=== PATIENT | female | born 1965 | race Caucasian/White ===

== ENCOUNTER 2017-10-20 13:36 | Emergency (ER) | payer SELFPAY ==
[2017-10-20] MEDS ORDERED: DIAZEPAM 5 MG TABLET PO ONE (14:12)
--- NOTE | 2017-10-20 14:18 | ER Document Report ---
ED General - General Chief Complaint: Anxiety Stated Complaint: MEDICATION REFILL Time Seen by Provider: 10/20/17 14:07 Mode of Arrival: Ambulatory Information source: Patient TRAVEL OUTSIDE OF THE U.S. IN LAST 30 DAYS: No - HPI Patient complains to provider of: med refill Onset: Other - pt. recently moved here from [place] and doesn't have MD appt for several weeks. She is asking for refills of her meds . She denies SI/HI but is bipolar - Related Data Allergies/Adverse Reactions: No Known Allergies Allergy (Unverified 10/20/17 13:42) Past Medical History - General Information source: Patient - Social History Smoking Status: Current Every Day Smoker Chew tobacco use (# tins/day): No Frequency of alcohol use: Occasional Drug Abuse: None Family History: None Patient has suicidal ideation: No Patient has homicidal ideation: No Renal/ Medical History: Denies: Hx Peritoneal Dialysis Review of Systems - Review of Systems Constitutional: No symptoms reported EENT: No symptoms reported Cardiovascular: No symptoms reported Respiratory: No symptoms reported Gastrointestinal: No symptoms reported Neurological/Psychological: See HPI, Anxiety. denies: Suicidal ideation -: Yes All other systems reviewed and negative Physical Exam - General General appearance: Appears well, Anxious In distress: None - HEENT Pharynx: Normal Neck: Normal - Respiratory Respiratory status: No respiratory distress Breath sounds: Normal - Cardiovascular Rhythm: Regular Heart sounds: Normal auscultation - Neurological Neuro grossly intact: Yes Cognition: Normal Orientation: AAOx4 - Psychological Associated symptoms: Normal affect, Normal mood, Anxious Discharge - Discharge Clinical Impression: Medication refill Condition: Stable Disposition: HOME, SELF-CARE Instructions: Anxiety ([facility]) Additional Instructions: rest, take meds as prescribed, return if worse Prescriptions: Lamotrigine [Lamictal 100 mg Tablet] 100 mg PO QHS #30 tablet Clonazepam [Klonopin 2 mg Tablet] 2 mg PO BID #60 tablet Ziprasidone HCl [Geodon 60 Mg Capsule] 60 mg PO BID #60 capsule Zolpidem Tartrate [Ambien Cr] 12.5 mg PO DAILY #20 tab.mphase
== END 2017-10-20 14:21 | disposition home or self-care (01) ==
LOC: ER 13:36
DX: Z76.0 Encounter for issue of repeat prescription (principal); F31.9 Bipolar disorder, unspecified; F17.200 Nicotine dependence, unspecified, uncomplicated; F41.9 Anxiety disorder, unspecified
CPT/HCPCS: 99281

== ENCOUNTER 2017-11-05 19:14 | Emergency (ER) | payer SELFPAY ==
[2017-11-05 20:40] LABS: ABSOLUTE BASOPHILS # (AUTO) 0.1 10^3/uL (0.0-0.2); ABSOLUTE EOSINOPHILS # (AUTO) 0.1 10^3/uL (0.0-0.6); ABSOLUTE LYMPHOCYTES (AUTO) 2.8 10^3/uL (0.5-4.7); ABSOLUTE MONOCYTES (AUTO) 0.8 10^3/uL (0.1-1.4); ABSOLUTE NEUT (AUTO) 3.6 10^3/uL (1.7-8.2); BASOPHILS % (AUTO) 1.2 % (0-2); EOSINOPHILS % (AUTO) 1.4 % (0-6); HEMOGLOBIN 13.8 g/dL (12.0-15.5); HGB HCT DIFFERENCE 0.4; LYMPHOCYTES % (AUTO) 38.3 % (13-45); MEAN CORPUSCULAR HEMOGLOBIN 30.2 pg (27.0-33.4); MEAN CORPUSCULAR HGB CONC 33.7 g/dL (32.0-36.0); MEAN CORPUSCULAR VOLUME 90 fl (80-97); MONOCYTES % (AUTO) 10.4 % (3-13); RED BLOOD COUNT 4.58 10^6/uL (3.72-5.28); RED CELL DISTRIBUTION WIDTH 13.5 % (11.5-14.0); SEGMENTED NEUTROPHILS % (AUTO) 48.7 % (42-78); WHITE BLOOD COUNT 7.4 10^3/uL (4.0-10.5)
[2017-11-05 20:58] LABS: ALANINE AMINOTRANSFERASE 28 U/L (9-52); ALBUMIN 4.1 g/dL (3.5-5.0); ALCOHOL < 10 mg/dL (NONE DETECTED); ALKALINE PHOSPHATASE 62 U/L (38-126); ANION GAP 11 (5-19); ASPARTATE AMINO TRANSFERASE 25 U/L (14-36); BILIRUBIN,DIRECT 0.1 mg/dL (0.0-0.4); BILIRUBIN,TOTAL 0.2 mg/dL (0.2-1.3); BLOOD UREA NITROGEN 12 mg/dL (7-20); CALCIUM 9.9 mg/dL (8.4-10.2); CARBON DIOXIDE 26 mmol/L (22-30); CHLORIDE 110 mmol/L (98-107); CREATININE RESULT 0.82 mg/dL (0.52-1.25); GLUCOSE 79 mg/dL (75-110); POTASSIUM 4.3 mmol/L (3.6-5.0); SODIUM 146.5 mmol/L (137-145); TOTAL PROTEIN 6.7 g/dL (6.3-8.2)
[2017-11-05] MEDS ORDERED: ZIPRASIDONE HCL 60 MG CAPSULE PO ONE (21:11)
[2017-11-05] MEDS ORDERED: CLONAZEPAM 1 MG TABLET PO ONE (21:12)
[2017-11-05] MEDS ORDERED: LAMOTRIGINE 100 MG TABLET PO ONE (21:12)
[2017-11-05 21:16] LABS: APPEARANCE,URINE CLEAR; BILIRUBIN,URINE NEGATIVE (NEGATIVE); GLUCOSE, URINE NEGATIVE (NEGATIVE); KETONES,URINE NEGATIVE (NEGATIVE); LEUKOCYTE ESTERASE,URINE TRACE (NEGATIVE); NITRITE,URINE NEGATIVE (NEGATIVE); PROTEIN,URINE NEGATIVE (NEGATIVE); URINE SPECIFIC GRAVITY 1.015; UROBILINOGEN,URINE NEGATIVE mg/dL (<2.0)
[2017-11-05 21:29] LABS: URINE BARBITURATES SCREEN NEGATIVE; URINE METHADONE SCREEN NEGATIVE; URINE OPIATES LOW NEGATIVE; URINE PHENCYCLIDINE SCREEN NEGATIVE
--- NOTE | 2017-11-05 22:36 | ER Document Report ---
ED General - General Chief Complaint: Psych Problem Stated Complaint: PSYCH EVALUATION Time Seen by Provider: 11/05/17 19:57 Mode of Arrival: Ambulatory Information source: Patient TRAVEL OUTSIDE OF THE U.S. IN LAST 30 DAYS: No - HPI Patient complains to provider of: Bipolar Onset: Other - Months ago Quality of pain: No pain Context: Patient presents with her suitcase filled with close as well as other bags of belongings. She states that she has been off her Geodon Lamictal Klonopin and Ambien for months and she needs them filled. She states she does have prescriptions and she can get them done tomorrow morning however she needs medications for tonight. She states that she takes Lamictal 400 mg daily, Geodon 160 mg daily, Klonopin 2 mg and Ambien. She is also complaining of back pain as she has had surgery on her back before and she is requesting Vicodin for that. She states that she has bipolar and she starting to cycle because she has been off her meds. She states she is not suicidal she is just sad. She states that she has been holding in the fact that her grandmother , her "narcissistic psychopath boyfriend ", her father . She states she is trying to get to [place] to a facility to help her with her emotions. She has a contact there and she has been talking to her. She just needs a way to get there. She thought perhaps case management could get her a train ride. Patient also has a therapist in [place] name Dr. Lemus and she talks to her daily. Then she re-states that she is not suicidal and she is insulted that the nurses have taken the gloves out of the room and the are continually opening the car into stare at her Associated symptoms: None Exacerbated by: Denies Relieved by: Denies Similar symptoms previously: Yes Recently seen / treated by doctor: Yes - pt. was here a few days ago and received scripts for meds - Related Data Allergies/Adverse Reactions: No Known Allergies Allergy (Verified 11/05/17 19:17) Past Medical History - General Information source: Patient - Social History Smoking Status: Current Every Day Smoker Frequency of alcohol use: Social Drug Abuse: None Family History: None Patient has suicidal ideation: No Patient has homicidal ideation: No - Past Medical History Cardiac Medical History: Reports: None Pulmonary Medical History: Reports: None EENT Medical History: Reports: None Neurological Medical History: Reports: None Endocrine Medical History: Reports: None Renal/ Medical History: Reports: None. Denies: Hx Peritoneal Dialysis Malignancy Medical History: Reports: None GI Medical History: Reports: None Musculoskeltal Medical History: Reports None Skin Medical History: Reports None Psychiatric Medical History: Reports: Hx Bipolar Disorder Infectious Medical History: Reports: None Review of Systems - Review of Systems Constitutional: No symptoms reported EENT: No symptoms reported Cardiovascular: No symptoms reported Respiratory: No symptoms reported Gastrointestinal: No symptoms reported Genitourinary: No symptoms reported Female Genitourinary: No symptoms reported Musculoskeletal: Back pain Skin: No symptoms reported Hematologic/Lymphatic: No symptoms reported Neurological/Psychological: No symptoms reported Physical Exam - Vital signs Vitals: Temp Pulse Resp BP Pulse Ox 98.0 F 102 H 20 121/73 99 11/05/17 19:26 11/05/17 19:26 11/05/17 19:26 11/05/17 19:26 11/05/17 19:26 - Notes Notes: PHYSICAL EXAMINATION: GENERAL: Well-appearing, well-nourished and in no acute distress. HEAD: Atraumatic, normocephalic. EYES: Pupils equal round and reactive to light, extraocular movements intact, conjunctiva are normal. ENT: Nares patent, oropharynx clear without exudates. Moist mucous membranes. NECK: Normal range of motion, supple without lymphadenopathy LUNGS: Breath sounds clear to auscultation bilaterally and equal. No wheezes rales or rhonchi. HEART: Regular rate and rhythm without murmurs ABDOMEN: Soft, nontender, nondistended abdomen. No guarding, no rebound. No masses appreciated. Female : deferred Musculoskeletal: Normal range of motion, no pitting or edema. No cyanosis. NEUROLOGICAL: Cranial nerves grossly intact. Normal speech, normal gait. Normal sensory, motor exams PSYCH: Patient is easily excitable. She does make good eye contact and can carry on a conversation. She has somewhat pressured speech. No suicidal ideation or homicidal ideation. SKIN: Warm, Dry, normal turgor, no rashes or lesions noted. Course - Re-evaluation Re-evalutation: 11/05/17 23:25 She is medically cleared, awaiting psych consult. - Vital Signs Vital signs: Temp Pulse Resp BP Pulse Ox 98.0 F 102 H 20 121/73 99 11/05/17 19:26 11/05/17 19:26 11/05/17 19:26 11/05/17 19:26 11/05/17 19:26 - Laboratory Result Diagrams: 11/05/17 20:25 11/05/17 20:25 Laboratory results interpreted by me: 11/05/17 11/05/17 20:25 20:57 Sodium 146.5 H Chloride 110 H Ur Leukocyte Esterase TRACE H Salicylates < 1.0 L Acetaminophen < 10 L Discharge - Discharge Clinical Impression: Bipolar 1 disorder
[2017-11-06] MEDS ORDERED: NICOTINE 21 MG/24 HR PATCH.TD24 TD ONE (04:23)
[2017-11-06] MEDS ORDERED: BENZTROPINE MESYLATE 1 MG TABLET PO ONE (06:20)
[2017-11-06] MEDS ORDERED: ZIPRASIDONE HCL 60 MG CAPSULE PO ONE (06:20)
--- NOTE | 2017-11-06 08:03 | EKG REPORT ---
SEVERITY:- NORMAL ECG - SINUS RHYTHM ST ELEV, PROBABLE NORMAL EARLY REPOL PATTERN : Confirmed by: Maximus Chavez MD 06-Nov-2017 08:03:01
--- NOTE | 2017-11-06 10:14 | PSYCHOLOGICAL NOTE ---
Psych Note - Psych Note Psych Note: Patient presented at the Emergency Department indicating she was out of her medications and needed refills. She brought in a suitcase and two boxes of personal belongings. She reported both living with her son in a residence off [facility] in [place], [place] and also living in a local hotel. When asked where her current residence is she indicated she was returning to [place] within the next week but would stay with her son until that time. Chart review indicated patient was seen in this Emergency Department on 10/25/2017 and was given prescriptions for her established medications. She reported her medications being at the [facility] but they were unable to be picked up until today. Patient reported she needed money to sweet pickle maker her medications and when informed the Emergency Department would not be supplying her with money she stated she would contact her mother in [place] to send her money to pay for them. Patient stated she "keeps her meds at [facility] and pick them up when I need them." Provider enquired if patient had followed up with a local provider from the resource list she was given at past visit to the Emergency Department. Patient indicated seeing a psychiatrist didn't "happen that quickly " but did admit she had not attempted to follow up with any local providers. Patient stated she just wanted to sleep because she was tired. Patient reported her son's phone was not working and she did not know the contact number for her mother. Patient denied suicidal or homicidal ideation, intent or plan. Patient was observed to be lethargic and slurring her words. Emergency Department nurses informed this provider the patient was calling 911 multiple times from her cell phone in her room. Nurse reported when she asked the patient about contacting her son she stated she was only able to contact her son through [employer]. Patient was alert and oriented to person, place, time and circumstance. Mood was calm and lethargic. Affect was mood congruent. She denied auditory/visual hallucinations at this time. No delusions were noted. Thought processes were linear, rational and organized. Conversational speech was slurred, normal in prosody and low in tone. Intellectual abilities were estimated within the average range. Attention and concentration were within normal limits. Insight, judgment and impulse control were fair. 1. [id number] (F31.9) Unspecified Bipolar and Related Disorder, by History Impression/Plan: Patient is psychiatrically cleared for discharge. Education provided to patient about continued medication management and follow up either locally or in [place] to manage her Bipolar Disorder. Patient denied suicidal or homicidal ideation, intent or plan. Patient was provided referral to [facility] for local services of medication management of her Bipolar Disorder. Consulted with Dr. Bai for care and treatment of this patient. ED physician in agreement with recommendation and disposition.
--- NOTE | 2017-11-06 10:15 | ER Document Report ---
Doctor's Note Notes: 11/06/17 10:13 Rounds: Chart reviewed and patient interviewed. Patient says she is feeling much better this morning. Said that all she needed was a good nights rest and she got that last night. Patient has her suitcase and other belongings with her. Says she wants to return to [place] where she lives in the [place] area. Denies any feelings of suicide, etc. History of bipolar disorder, out of medications. Labs are essentially normal except for being positive for benzos on her drug screen. Vital signs are all normal. Patient appears to be medically stable for transfer or discharge. Faraz Salazar MD
[2017-11-06 10:55] VITALS: BP 118/99
== END 2017-11-06 11:05 | disposition home or self-care (01) ==
LOC: ER 19:14
DX: F31.9 Bipolar disorder, unspecified (principal); T43.596A Underdosing of other antipsychotics and neuroleptics, initial encounter; T42.6X6A Underdosing of other antiepileptic and sedative-hypnotic drugs, initial encounter; T42.4X6A Underdosing of benzodiazepines, initial encounter; Z91.128 Patient's intentional underdosing of medication regimen for other reason; Z91.14 Patient's other noncompliance with medication regimen; F17.200 Nicotine dependence, unspecified, uncomplicated; M54.9 Dorsalgia, unspecified; Z98.890 Other specified postprocedural states
CPT/HCPCS: 93005; 99285; 36415; 80307 ×4; 85025; 80053; 81001; 93010; J3490

== ENCOUNTER 2017-11-06 23:14 | Emergency (ER) | payer SELFPAY ==
[2017-11-07] MEDS ORDERED: ZIPRASIDONE HCL 60 MG CAPSULE PO ONE (01:04)
[2017-11-07] MEDS ORDERED: LAMOTRIGINE 100 MG TABLET PO ONE (01:04)
[2017-11-07] MEDS ORDERED: CLONAZEPAM 1 MG TABLET PO ONE (01:04)
[2017-11-07] MEDS ORDERED: LIDOCAINE 5% (700 MG) TRANSDERMAL ADH..PATCH TP ONE (01:05)
[2017-11-07] MEDS ORDERED: ZOLPIDEM TARTRATE 5 MG TABLET PO ONE (01:05)
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
[2017-11-07] MEDS ORDERED: LAMOTRIGINE 100 MG TABLET ONE (01:27)
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
[2017-11-07 05:35] VITALS: BP 89/71
== END 2017-11-07 05:15 | disposition home or self-care (01) ==
LOC: ER 23:14
DX: G89.29 Other chronic pain (principal); M54.6 Pain in thoracic spine; Z98.890 Other specified postprocedural states; F31.9 Bipolar disorder, unspecified; T50.906A Underdosing of unspecified drugs, medicaments and biological substances, initial encounter; Z91.120 Patient's intentional underdosing of medication regimen due to financial hardship; Z91.14 Patient's other noncompliance with medication regimen; Z59.0 Homelessness; F17.200 Nicotine dependence, unspecified, uncomplicated
CPT/HCPCS: 99283; 72070; J3490

== ENCOUNTER 2017-11-13 19:17 | Emergency (ER) | payer SELFPAY ==
--- NOTE | 2017-11-13 20:03 | ER Document Report ---
ED GI/ - General Mode of Arrival: Ambulatory Information source: Patient TRAVEL OUTSIDE OF THE U.S. IN LAST 30 DAYS: No - HPI Patient complains to provider of: Flank pain - RIGHT Onset: This afternoon Timing/Duration: Sudden Quality of pain: Stabbing Severity at maximum: Severe Severity in ED: Moderate Context: denies: Bad food, Lifting, Out of the country travel, , Recent trauma Location: RLQ, Right flank Vaginal bleeding (Compared to normal period): None Menstrual period history: Post-menopausal. denies: Associated symptoms: Nausea. denies: Chills, Diarrhea, Fever, Hematuria, Vomiting Exacerbated by: Denies Relieved by: Denies <JUDI LUA - Last Filed: 11/13/17 23:02> <MARY HOPE - Last Filed: 11/14/17 11:29> - General Chief Complaint: Flank Pain Stated Complaint: KIDNEY PAIN Time Seen by Provider: 11/13/17 20:02 - Related Data Allergies/Adverse Reactions: No Known Allergies Allergy (Verified 11/05/17 19:17) Past Medical History - General Information source: Patient - Social History Smoking Status: Current Every Day Smoker Cigarette use (# per day): Yes Chew tobacco use (# tins/day): No Smoking Education Provided: No Frequency of alcohol use: None Drug Abuse: None Lives with: Family - [facility]ISIT[facility] IN [facility], LIV[facility] IN [facility]. Family History: None Patient has suicidal ideation: No Patient has homicidal ideation: No - Past Medical History Cardiac Medical History: Reports: None Pulmonary Medical History: Reports: None EENT Medical History: Reports: None Neurological Medical History: Reports: None Endocrine Medical History: Reports: None Renal/ Medical History: Reports: None. Denies: Hx Kidney Stones, Hx Peritoneal Dialysis Malignancy Medical History: Reports: None GI Medical History: Reports: None Musculoskeltal Medical History: Reports None Psychiatric Medical History: Reports: Hx Bipolar Disorder Surgical Hx: Negative <JUDI LUA - Last Filed: 11/13/17 23:02> Review of Systems - Review of Systems Constitutional: No symptoms reported. denies: Chills, Diaphoresis, Fever EENT: No symptoms reported Cardiovascular: No symptoms reported Respiratory: No symptoms reported Gastrointestinal: No symptoms reported Genitourinary: See HPI Female Genitourinary: No symptoms reported Musculoskeletal: No symptoms reported Skin: No symptoms reported Neurological/Psychological: No symptoms reported <JUDI LUA - Last Filed: 11/13/17 23:02> Physical Exam - Vital signs Interpretation: Normal. No: Tachycardic, Tachypneic, Febrile - General General appearance: Anxious In distress: Mild - HEENT Head: Normocephalic Eyes: Normal Conjunctiva: Normal Ears: Normal Nasal: Normal Mouth/Lips: Normal Mucous membranes: Dry - MILDLY Pharynx: Normal Neck: Normal - Respiratory Respiratory status: No respiratory distress - Cardiovascular Rhythm: Regular - Abdominal Inspection: Normal Distension: No distension Bowel sounds: Hypoactive Tenderness: Tender - MILD, RLQ - Back Back: Normal, CVA tenderness - RIGHT - Extremities General upper extremity: Normal inspection General lower extremity: Normal inspection - Neurological Neuro grossly intact: Yes Cognition: Normal Orientation: AAOx4 - Psychological Associated symptoms: Anxious, Restlessness, Tearful - Skin Skin Temperature: Warm Skin Moisture: Dry Skin Color: Normal Skin Turgor: Elastic <JUDI LUA - Last Filed: 11/13/17 23:02> - Vital signs Vitals: Temp Pulse Resp BP Pulse Ox 97.8 F 84 20 112/74 99 11/13/17 19:26 11/13/17 19:26 11/13/17 19:26 11/13/17 19:26 11/13/17 19:26 Course - Laboratory Result Diagrams: 11/13/17 20:10 11/13/17 20:10 <JUDI LUA - Last Filed: 11/13/17 23:02> - Laboratory Result Diagrams: 11/13/17 20:10 11/13/17 20:10 <MARY HOPE - Last Filed: 11/14/17 11:29> - Re-evaluation Re-evalutation: 11/13/17 23:05 Patient reports her pain is improved but not resolved. She does appear to be more comfortable. Prolonged discussion was made of the patient's situation and her failure to follow-up with recommended course of action and prescriptions. She was told that no more medications will be prescribed from this emergency department. I will medicate her with 1 dose of her bipolar medications. She requests to speak with somebody from psychosocial services. I reluctantly agreed to allow her to stay until morning, partly due to the fact that she is apparently homeless and it is quite cold outdoors tonight. (JUDI LUA) 11/14/17 11:27Patient has been rechecked, labs reviewed, small blood in the urine but no RBCs actually seen a microscopic, no leukocytosis, no signs of infection, CT scan was negative from last night. Continues to complain of right flank pain it is actually in her low back, no rashes noted. Discussed with patient that this is the same pain that she always has twice a year it takes 3 days to go away and then resolves on its own. Patient states that normally they put her in the hospital on a morphine drip to control her pain and then it goes away after 3 days. I discussed with the patient that we do not hospitalize patients on a morphine drip for an acute flare of chronic back pain in this facility. Patient is able to move all 4 extremities, denies bowel or bladder dysfunction, has no fevers, no numbness no tingling, no difficulty ambulating. Only minimally tender across the right low back on palpation, no rashes, no signs of shingles. Patient will be given a single dose of her [place] here as well as a single dose of her Klonopin and then discharged to home. Patient has been seen by behavioral health, once again recommended to follow-up with [facility]. Patient is fixated on the idea of going to [place], states that she does not want to see any resources appear but wants to be sent to [place] instead. I did discuss with the patient that we do not provide bus rides to [place]. Recommended that she contact [facility] as an outpatient to discover further resources in the community. No suicidal or homicidal ideation. Does not meet IVC criteria. No need to keep in the emergency department. (MARY HOPE) - Vital Signs Vital signs: Temp Pulse Resp BP Pulse Ox 97.8 F 67 18 103/68 99 11/13/17 19:26 11/13/17 23:36 11/14/17 06:36 11/13/17 23:36 11/13/17 23:36 - Laboratory Laboratory results interpreted by me: 11/13/17 20:30 Urine Blood SMALL H Discharge <JUDI LUA - Last Filed: 11/13/17 23:02> <MARY HOPE - Last Filed: 11/14/17 11:29> - Discharge Clinical Impression: Bipolar 1 disorder, Flank pain, Acute exacerbation of chronic low back pain, Anxiety Condition: Stable Disposition: HOME, SELF-CARE Instructions: Bipolar Disorder ([facility]), Flank Pain ([facility]) Additional Instructions: We did not find any signs of urinary tract infection, kidney problems or kidney stone today. We have given you a single dose of your medications for your acute flare of chronic back pain as well as her anxiety. Once again we recommend that you follow-up with [facility] as an outpatient. They may be able to help you find further resources as an outpatient. We are not able to provide you with a bus ticket to [place] at this time. Please return to the emergency department for any new or concerning symptoms. Referrals: ROSITA GERARDO MD [ACTIVE STAFF] - Follow up in 1 week [facility] [Outside] - Follow up tomorrow
[2017-11-13] MEDS ORDERED: NORMAL SALINE 1000 ML 1,000 ML IV ONE (20:18)
[2017-11-13] MEDS ORDERED: KETOROLAC TROMETHAMINE INJ/PF 30 MG/1 ML SDV IV ONE (20:18)
[2017-11-13 20:27] LABS: ABSOLUTE BASOPHILS # (AUTO) 0.1 10^3/uL (0.0-0.2); ABSOLUTE EOSINOPHILS # (AUTO) 0.1 10^3/uL (0.0-0.6); TOTAL CELLS COUNTED % (AUTO) 100 %
[2017-11-13 20:30] LABS: ABSOLUTE LYMPHOCYTES (AUTO) 2.5 10^3/uL (0.5-4.7); ABSOLUTE MONOCYTES (AUTO) 0.5 10^3/uL (0.1-1.4); ABSOLUTE NEUT (AUTO) 4.9 10^3/uL (1.7-8.2); BASOPHILS % (AUTO) 0.9 % (0-2); EOSINOPHILS % (AUTO) 1.2 % (0-6); HEMATOCRIT 42.2 % (36.0-47.0); HEMOGLOBIN 14.3 g/dL (12.0-15.5); LYMPHOCYTES % (AUTO) 30.6 % (13-45); MEAN CORPUSCULAR HEMOGLOBIN 30.2 pg (27.0-33.4); MEAN CORPUSCULAR HGB CONC 33.8 g/dL (32.0-36.0); MEAN CORPUSCULAR VOLUME 89 fl (80-97); MONOCYTES % (AUTO) 6.4 % (3-13); PLATELET COUNT 315 10^3/uL (150-450); RED BLOOD COUNT 4.73 10^6/uL (3.72-5.28); RED CELL DISTRIBUTION WIDTH 13.5 % (11.5-14.0); SEGMENTED NEUTROPHILS % (AUTO) 60.9 % (42-78); WHITE BLOOD COUNT 8.1 10^3/uL (4.0-10.5)
[2017-11-13 20:37] LABS: ALANINE AMINOTRANSFERASE 34 U/L (9-52); ALBUMIN 4.2 g/dL (3.5-5.0); ALKALINE PHOSPHATASE 64 U/L (38-126); ANION GAP 10 (5-19); ASPARTATE AMINO TRANSFERASE 26 U/L (14-36); BILIRUBIN,DIRECT 0.2 mg/dL (0.0-0.4); BILIRUBIN,TOTAL 0.2 mg/dL (0.2-1.3); BLOOD UREA NITROGEN 12 mg/dL (7-20); CALCIUM 9.9 mg/dL (8.4-10.2); CARBON DIOXIDE 27 mmol/L (22-30); CHLORIDE 105 mmol/L (98-107); CREATINE KINASE 57 U/L (30-135); GLUCOSE 91 mg/dL (75-110); POTASSIUM 4.2 mmol/L (3.6-5.0); SODIUM 141.7 mmol/L (137-145)
[2017-11-13 20:55] LABS: APPEARANCE,URINE CLEAR; BILIRUBIN,URINE NEGATIVE (NEGATIVE); COLOR,URINE COLORLESS; GLUCOSE, URINE NEGATIVE (NEGATIVE); KETONES,URINE NEGATIVE (NEGATIVE); LEUKOCYTE ESTERASE,URINE NEGATIVE (NEGATIVE); NITRITE,URINE NEGATIVE (NEGATIVE); PROTEIN,URINE NEGATIVE (NEGATIVE); URINE SPECIFIC GRAVITY 1.002; UROBILINOGEN,URINE NEGATIVE mg/dL (<2.0)
--- NOTE | 2017-11-13 21:03 | RADIOLOGY REPORT (SQ) ---
EXAM DESCRIPTION: CT LTD RENAL STONE PROTOCOL ON COMPLETED DATE/TIME: 11/13/2017 8:46 pm REASON FOR STUDY: R. FLANK PAIN COMPARISON: None. TECHNIQUE: CT scan of the abdomen and pelvis performed without intravenous or oral contrast. Images reviewed with lung, soft tissue, and bone windows. Reconstructed coronal and sagittal MPR images revi ewed. All images stored on PACS. All CT scanners at this facility use dose modulation, iterative reconstruction, and/or weight based d osing when appropriate to reduce radiation dose to as low as reasonably achievable (ALARA). [facility]: Dose Right [facility]: CareDose [facility]: Dose Right [facility]: Teradose 4D [facility]: Smart The [employer] RADIATION DOSE: CT Rad equipment meets quality standard of care and radiation dose reduction techniq ues were employed. CTDIvol: 4.8 mGy. DLP: 232 mGy-cm.mGy. LIMITATIONS: None. FINDINGS: LOWER CHEST: No significant findings. No nodules or infiltrates. NON-CONTRASTED LIVER, SPLEEN, ADRENALS: Evaluation limited by lack of IV contrast. No identified sign ificant masses. PANCREAS: No masses. No peripancreatic inflammatory changes. GALLBLADDER: No identified stones by CT criteria. No inflammatory changes to suggest cholecystitis. RIGHT KIDNEY AND URETER: No suspicious masses. Assessment limited by lack of IV contrast. No signif icant calcifications. No hydronephrosis or hydroureter. LEFT KIDNEY AND URETER: Lower pole cyst. Assessment limited by lack of IV contrast. No significant calcifications. No hydronephrosis or hydroureter. AORTA AND RETROPERITONEUM: No aneurysm. No retroperitoneal masses or adenopathy. BOWEL AND PERITONEAL CAVITY: No obvious masses or inflammatory changes. No free fluid. APPENDIX: Normal. PELVIS, BLADDER, AND ABDOMINAL WALL:No abnormal masses. No free fluid. Bladder normal. BONES: No acute findings. OTHER: No other significant finding. IMPRESSION: NO ACUTE PROCESS IN THE ABDOMEN OR PELVIS. COMMENT: Quality ID # [id number]: Final reports with documentation of one or more dose reduction techniques (e.g., Automated exposure control, adjustment of the mA and/or kV according to patient size, use of iterative reconstruction technique) TECHNICAL DOCUMENTATION: JOB ID: [id number] [place]-72 2010 [employer] All Rights Reserved
[2017-11-13 21:09] LABS: ERYTHROCYTE SEDIMENTATION RATE 17 mm/hr (0-30)
[2017-11-13 21:16] LABS: URINE AMPHETAMINES SCREEN NEGATIVE; URINE BARBITURATES SCREEN NEGATIVE; URINE BENZODIAZEPINES SCREEN NEGATIVE; URINE COCAINE SCREEN NEGATIVE; URINE MARIJUANA (THC) SCREEN NEGATIVE; URINE METHADONE SCREEN NEGATIVE; URINE PHENCYCLIDINE SCREEN NEGATIVE
[2017-11-13] MEDS ORDERED: CLONAZEPAM 1 MG TABLET PO ONE (21:23)
[2017-11-13] MEDS ORDERED: ZIPRASIDONE HCL 60 MG CAPSULE PO ONE (23:03)
[2017-11-13] MEDS ORDERED: LAMOTRIGINE 100 MG TABLET PO ONE (23:03)
[2017-11-13] MEDS ORDERED: LIDOCAINE 5% (700 MG) TRANSDERMAL ADH..PATCH TP ONE (23:10)
[2017-11-13] MEDS ORDERED: LAMOTRIGINE 100 MG TABLET ONE (23:39)
[2017-11-13 23:40] VITALS: BP 103/68
[2017-11-14] MEDS ORDERED: CLONAZEPAM 1 MG TABLET PO ONE (11:25)
[2017-11-14] MEDS ORDERED: HYDROCODONE/ACETAMINOPHEN 7.5-325 MG TABLET PO ONE (11:25)
--- NOTE | 2017-11-14 20:21 | PSYCHOLOGICAL NOTE ---
Psych Note - Psych Note Psych Note: Reason for consult: Anxiety Consents given: None Patient presented to the Emergency Department with back pain and anxiety. Patient stated she came into the Emergency Department because she is "cycling sad." She stated she has been unable to fill her prescriptions because she does not have financial resources to pay for them. Patient stated she was looking for a way to get to [place], [place] to be admitted to a "holistic" rehabilitation center. Patient stated she needed a bus ticket to [place]. Patient stated she was sad because she was lonely, her grandmother and her partner . Patient was vague on when these significant life events occurred. Patient stated her doctor in [place] told her she had suppressed her emotions and now she was "feeling her feelings" and that was making her sad. Patient was unable to explain who the doctor in [place] was or what type of doctor they are. Patient stated she is isolating herself and staying in a hotel. Patient stated she is not talking to her son who lives in the area because they got into "an argument." She stated her son told her she is " to him." Patient stated she wanted "something" for her back pain and "my Klonopin for my anxiety." Patient stated her back pain stems from a cyst on her kidney that she has severe pain from once a year for the last three years. Provider asked patient about following up with the resources she was given last week when she was in the Emergency Department. Patient stated she had not followed up with them because she wanted to go to [place] and they would link her with providers in this area. Patient was alert and oriented to person, place, time and circumstance. Mood was tearful and frustrated. Affect was mood congruent. She denied auditory/ visual hallucinations at this time. No delusions were noted. Thought processes were linear, rational and organized. Conversational speech was pressured and within normal limits for tone and prosody. Intellectual abilities were estimated within the average range. Attention and concentration were within normal limits. Insight, judgment and impulse control were fair. 1. [id number] (F31.9) Unspecified Bipolar and Related Disorder, by History Impression/Plan: Patient is psychiatrically cleared. Education provided to patient about continued medication management and follow up either locally or in [place] to manage her Bipolar Disorder. Patient denied suicidal or homicidal ideation, intent or plan. Patient was again provided referral to [facility] for local services of outpatient therapy and medication management of her Bipolar Disorder. Consulted with Dr. Bai for care and treatment of this patient. ED physician in agreement with recommendation and disposition.
== END 2017-11-14 11:44 | disposition home or self-care (01) ==
LOC: ER 19:17
DX: F31.9 Bipolar disorder, unspecified (principal); R10.9 Unspecified abdominal pain; M54.5 Low back pain; G89.29 Other chronic pain; F41.9 Anxiety disorder, unspecified; F17.210 Nicotine dependence, cigarettes, uncomplicated
CPT/HCPCS: 99285; 96361; 96374; 36415; 82550; 85025; 85652; 80053; 81001; 80307; 76380; J1885; J7030; J3490

== ENCOUNTER 2017-11-15 23:28 | Emergency (ER) | payer SELFPAY ==
[2017-11-15 23:49] VITALS: BP 119/84
--- NOTE | 2017-11-16 00:36 | ER Document Report ---
ED Psych Disorder / Suicide - General Mode of Arrival: Ambulatory Information source: Patient TRAVEL OUTSIDE OF THE U.S. IN LAST 30 DAYS: No - HPI Patient complains to provider of: Other - see notes above. No: Suicidal ideation Onset: This evening Associated symptoms: Other - see notes above - General Chief Complaint: Psych Problem Stated Complaint: ANXIETY Time Seen by Provider: 11/16/17 00:11 Notes: 52 year old female with history of bipolar disorder, borderline personality disorder, anxiety, OCD, and anorexia presents to the ED complaining of not feeling safe, "sad", and "lonely" when staying in her hotel room alone. Patient spoke with her therapist (from [place]) who told the patient that she has been having manic cycles for 16 years, but is now cycling "sad". Patient spoke with admissions at [facility] for a voluntary check in and was told that she was put through intake and that she would have a ride to the facility at 0830 this morning. Patient reports that her friend convinced her to call the [facility] center because she was feeling 'lonely' and 'isolated' in her hotel room and wants to be around other people. Patient repeatedly states that she is not suicidal, but does not want to stay in her hotel room tonight because she 'might get suicidal'. After explaining that the patient is welcome to return to the ED if she feels suicidal, she responds by stating that she "might not make it back." Patient is on Lamictal, Klonopin, and Geodon and states that she has prescriptions for these medications that are filled at a local pharmacy, but has not picked them up. Patient reports that she is scared to take Klonopin because she has a son that is a heroin addict and overdosed. Lastly, patient complains of back pain, and denies any bowel or bladder dysfunction. Patient reports no changes to her back pain from yesterday when she was discharged home. (MICHELLE CHAPMAN) - Related Data Allergies/Adverse Reactions: No Known Allergies Allergy (Verified 11/15/17 23:29) Past Medical History - General Information source: Patient - Social History Smoking Status: Current Every Day Smoker Cigarette use (# per day): No Frequency of alcohol use: Occasional Drug Abuse: None Family History: None Patient has suicidal ideation: No Patient has homicidal ideation: No Renal/ Medical History: Denies: Hx Kidney Stones, Hx Peritoneal Dialysis Psychiatric Medical History: Reports: Hx Anxiety, Hx Bipolar Disorder, Hx Borderline Personality Disorder, Hx Obsessive Compulsive Disorder Surgical Hx: Negative Review of Systems - Review of Systems Constitutional: No symptoms reported EENT: No symptoms reported Cardiovascular: No symptoms reported Respiratory: No symptoms reported Gastrointestinal: No symptoms reported Genitourinary: No symptoms reported. denies: Burning, Dysuria Female Genitourinary: No symptoms reported Musculoskeletal: See HPI, Back pain Skin: No symptoms reported Hematologic/Lymphatic: No symptoms reported Neurological/Psychological: See HPI, Other - Patient reports feeling sad, lonely , and not safe.. denies: Suicidal ideation -: Yes All other systems reviewed and negative Physical Exam - Vital signs Vitals: Temp Pulse Resp BP Pulse Ox 98.2 F 60 18 119/84 98 11/15/17 23:48 11/15/17 23:48 11/15/17 23:48 11/15/17 23:48 11/15/17 23:48 - Notes Notes: GENERAL: Alert, interacts well. No acute distress. HEAD: Normocephalic, atraumatic. EYES: Pupils equal, round, and reactive to light. Extraocular movements intact. ENT: Oral mucosa moist, tongue midline. NECK: Full range of motion. Supple. Trachea midline. LUNGS: Clear to auscultation bilaterally, no wheezes, rales, or rhonchi. No respiratory distress. HEART: Regular rate and rhythm. No murmurs, gallops, or rubs. ABDOMEN: Soft, non-tender. Non-distended. EXTREMITIES: Moves all 4 extremities spontaneously. No edema, radial and dorsalis pedis pulses 2/4 bilaterally. No cyanosis. Able to ambulate without difficulty. NEUROLOGICAL: Alert and oriented x3. Normal speech, see psych exam below. Patellar DTRs 2+ bilaterally. Negative babinski. PSYCH: Occasionally tearful, then calm and able to talk logically about her care. Distracted at times, but easily redirected. Not acutely manic. SKIN: Warm, dry, normal turgor. No rashes or lesions noted. (MICHELLE CHAPMAN) Course - Re-evaluation Re-evalutation: 11/16/17 00:40 Patient states multiple times that she is not suicidal, that she has a counselor , that she has prescriptions at the pharmacy that are already filled, but she has not yet picked them up. Patient has a plan to be admitted voluntarily to [facility] in the morning at 8:30 a.m. Patient has had no change in her back pain since I examined her yesterday and he had a full work- up including bloodwork and CT scan 2 days ago. There is no need for additional bloodwork or other imaging studies or work-up. Patient is not suicidal. Patient will be discharged to home. It is very cold at this evening, patient is welcome to stay in our waiting room until [facility] can come pick her up at 8:30 in the morning. 11/16/17 02:23 Patient's son Nils Linda did call the emergency department and patient initially gave me permission to speak with him and release any and all information to him and answer all questions he might ask. Son wanted to know why we were discharging the patient to home when she obviously had mental health problems. The son and I had a very long and involved detailed discussion regarding IVC criteria and why the patient does not meet IVC criteria. We did discuss that I am not able to force the patient to take her medications, I cannot force her to fill her medications and I cannot fill her medications for her and I cannot force her to take her medications either. Son is aware that her mental health team did not feel she was an immediate danger to herself or other people yesterday and I still do not feel she meets IVC criteria today. Patient then rescinded permission to speak with her son and at this point I did not give him any further details regarding her care. (MARY HOPE) - Vital Signs Vital signs: Temp Pulse Resp BP Pulse Ox 98.2 F 60 18 119/84 98 11/15/17 23:48 11/15/17 23:48 11/15/17 23:48 11/15/17 23:48 11/15/17 23:48 Discharge - Discharge Clinical Impression: Feeling of sadness, Tobacco abuse, Tobacco abuse counseling Chronic low back pain without sciatica Qualifiers: Back pain laterality: left Qualified Code(s): M54.5 - Low back pain Condition: Stable Additional Instructions: Feeling sad is a normal emotion. I cannot medicate sadness away. If you begin to feel suicidal please return to the emergency department. Please cone picker your prescriptions which are waiting for you at the pharmacy. Forms: Smoking Cessation Education Scribe Attestation: 11/16/17 02:32 I personally performed the services described in the documentation, reviewed and edited the documentation which was dictated to the scribe in my presence, and it accurately records my words and actions. (MARY HOPE) Scribe Documentation - Scribe Written by Lawrence:: Lawrence Parra, 11/16/2017 0114 acting as scribe for :: Kunal
[2017-11-16] MEDS ORDERED: LAMOTRIGINE 100 MG TABLET PO ONE (00:37)
[2017-11-16] MEDS ORDERED: ZIPRASIDONE HCL 60 MG CAPSULE PO ONE (00:37)
[2017-11-16] MEDS ORDERED: LAMOTRIGINE 100 MG TABLET ONE (00:59)
== END 2017-11-16 01:30 | disposition home or self-care (01) ==
LOC: ER 23:28
DX: M54.5 Low back pain (principal); F41.9 Anxiety disorder, unspecified; F32.9 Major depressive disorder, single episode, unspecified; F60.3 Borderline personality disorder; F42.9 Obsessive-compulsive disorder, unspecified; R63.0 Anorexia; Z79.899 Other long term (current) drug therapy; F17.200 Nicotine dependence, unspecified, uncomplicated
CPT/HCPCS: 99284; J3490

== ENCOUNTER 2017-11-16 06:55 | Emergency (ER) | payer SELFPAY ==
[2017-11-16] MEDS ORDERED: CLONAZEPAM 1 MG TABLET PO ONE (08:32)
[2017-11-16] MEDS ORDERED: KETOROLAC TROMETHAMINE 60 MG/2 ML SDV IM ONE (08:32)
[2017-11-16 08:46] VITALS: BP 142/77
[2017-11-16] MEDS ORDERED: KETOROLAC TROMETHAMINE 10 MG TABLET PO ONE (08:53)
--- NOTE | 2017-11-16 09:37 | ER Document Report ---
ED General - General Chief Complaint: Back Pain Stated Complaint: BACK PAIN Time Seen by Provider: 11/16/17 07:56 Mode of Arrival: Ambulatory Information source: Patient Notes: 52 female history of bipolar disorder anxiety presents for the sixth time this week with complaints of anxiety and back pain. Patient was just seen prior and actually called Dr. shore stating that she wanted to return to be seen again by her, patient states that her back still hurts, and that she is still anxious and her anxiety makes her back hurt more TRAVEL OUTSIDE OF THE [place] IN LAST 30 DAYS: No - HPI Onset: Last week Onset/Duration: Intermittent Quality of pain: Cramping Severity: Mild Pain Level: 1 Associated symptoms: Other Exacerbated by: Denies Relieved by: Denies Similar symptoms previously: Yes Recently seen / treated by doctor: Yes - Related Data Allergies/Adverse Reactions: No Known Allergies Allergy (Verified 11/16/17 06:56) Past Medical History - Social History Smoking Status: Current Every Day Smoker Cigarette use (# per day): Yes Chew tobacco use (# tins/day): No Smoking Education Provided: No Family History: None Patient has suicidal ideation: No Patient has homicidal ideation: No Renal/ Medical History: Denies: Hx Kidney Stones, Hx Peritoneal Dialysis Psychiatric Medical History: Reports: Hx Anxiety, Hx Bipolar Disorder, Hx Borderline Personality Disorder, Hx Obsessive Compulsive Disorder Review of Systems - Review of Systems Notes: REVIEW OF SYSTEMS: CONSTITUTIONAL : Denies fever, chills, or sweats. Denies recent illness. EENT: Denies eye, ear, throat, or mouth pain or symptoms. Denies nasal or sinus congestion or discharge. Denies throat, tongue, or mouth swelling or difficulty swallowing. CARDIOVASCULAR: Denies chest pain. Denies palpitations or racing or irregular heart beat. Denies ankle edema. RESPIRATORY: Denies cough, cold, or chest congestion. Denies shortness of breath, difficulty breathing, or wheezing. GASTROINTESTINAL: Denies abdominal pain or distention. Denies nausea, vomiting , or diarrhea. Denies blood in vomitus, stools, or per rectum. Denies black, tarry stools. Denies constipation. GENITOURINARY: Denies difficulty urinating, painful urination, burning, frequency, blood in urine, or discharge. FEMALE GENITOURINARY: Denies vaginal bleeding, heavy or abnormal periods, irregular periods. Denies vaginal discharge or odor. MUSCULOSKELETAL: Admits to back pain SKIN: Denies rash, lesions or sores. HEMATOLOGIC : Denies easy bruising or bleeding. LYMPHATIC: Denies swollen, enlarged glands. NEUROLOGICAL: Denies confusion or altered mental status. Denies passing out or loss of consciousness. Denies dizziness or lightheadedness. Denies headache. Denies weakness or paralysis or loss of use of either side. Denies problems with gait or speech. Denies sensory loss, numbness, or tingling. Denies seizures. PSYCHIATRIC: Admits to depression anxiety ALL OTHER SYSTEMS REVIEWED AND NEGATIVE. PHYSICAL EXAMINATION: GENERAL: Well-appearing, well-nourished and in no acute distress. Patient is quite anxious distraught HEAD: Atraumatic, normocephalic. EYES: Pupils equal round and reactive to light, extraocular movements intact, conjunctiva are normal. ENT: Nares patent, oropharynx clear without exudates. Moist mucous membranes. NECK: Normal range of motion, supple without lymphadenopathy LUNGS: Breath sounds clear to auscultation bilaterally and equal. No wheezes rales or rhonchi. HEART: Regular rate and rhythm without murmurs ABDOMEN: Soft, nontender, nondistended abdomen. No guarding, no rebound. No masses appreciated. Female : deferred Musculoskeletal: Normal range of motion, no pitting or edema. No cyanosis. NEUROLOGICAL: Cranial nerves grossly intact. Normal speech, normal gait. Normal sensory, motor exams PSYCH: Anxious SKIN: Warm, Dry, normal turgor, no rashes or lesions noted. Dictation was performed using [employer] voice recognition software Physical Exam - Vital signs Vitals: Temp Pulse Resp BP Pulse Ox 98.1 F 86 18 107/76 98 11/16/17 06:56 11/16/17 06:56 11/16/17 06:56 11/16/17 06:56 11/16/17 06:56 Course - Re-evaluation Re-evalutation: 11/16/17 10:46 Patient's back pain appears to be secondary to her bipolar disorder, she is quite agitated stating that people are making fun of her, stating that she is being watched, patient notes that she is to go for inpatient psychiatric care. Patient has had CT imaging of her back already and she is walking with no difficulty, my physical examination was quite benign, patient was ordered medication including her Klonopin but prior to taking this she was already on the phone calling hospital supervisors about her care, after patient was given her medication she calmed down and apologized for her behavior It appears patient does have an inpatient bed and we are awaiting transport for her to go to [facility] at this time she has been discharged from our care After performing a Medical Screening Examination, I estimate there is LOW risk for EXPANDING OR RUPTURED ABDOMINAL AORTIC ANEURYSM, CAUDA EQUINA SYNDROME, EPIDURAL MASS LESION, or HERNIATED DISK CAUSING SEVERE SPINAL STENOSIS, thus I consider the discharge disposition reasonable. I have reevaluated this patient multiple times and no significant life threatening changes are noted. The patient and I have discussed the diagnosis and risks, and we agree with discharging home and close follow-up. We also discussed returning to the Emergency Department immediately if new or worsening symptoms occur with the understanding that symptoms and presentations can change. We have discussed the symptoms which are most concerning (e.g., saddle anesthesia, urinary or bowel incontinence or retention, changing or worsening pain) that necessitate immediate return. - Vital Signs Vital signs: Temp Pulse Resp BP Pulse Ox 97.8 F 82 18 142/77 H 100 11/16/17 08:45 11/16/17 08:45 11/16/17 08:45 11/16/17 08:45 11/16/17 08:45 - Diagnostic Test Radiology reviewed: Image reviewed, Reports reviewed Discharge - Discharge Clinical Impression: Acute exacerbation of chronic low back pain, Bipolar 1 disorder Condition: Stable Additional Instructions: You must follow-up with your psychiatrist for further evaluation of your bipolar disorder, return immediately if there are any other concerns
== END 2017-11-16 12:15 | disposition home or self-care (01) ==
LOC: ER 06:55
DX: G89.29 Other chronic pain (principal); M54.5 Low back pain; F31.9 Bipolar disorder, unspecified; F41.9 Anxiety disorder, unspecified; F17.210 Nicotine dependence, cigarettes, uncomplicated
CPT/HCPCS: 99284; J3490